=== PATIENT | male | born 2000 | race Two or more races ===

== ENCOUNTER 2022-11-01 10:30 | Emergency (ER) | payer OTHER, MEDICAID ==
[2022-11-01] MEDS ORDERED: Lidocaine 1% 10 ML MDV INJECT ONE (10:54)
[2022-11-01] MEDS ORDERED: Diphtheria,Pertussis(Acell),Tetanus Vaccine 0.5 ML Syringe IM ONE (11:56)
[2022-11-01] MEDS ORDERED: Acetaminophen/HYDROcodone 325-10 MG Tab PO ONE (12:17)
== END 2022-11-01 12:35 | disposition short-term general hospital (02) ==
LOC: VM.ED 10:30
DX: S93.121A Dislocation of metatarsophalangeal joint of right great toe, initial encounter (principal); S91.311A Laceration without foreign body, right foot, initial encounter; Z23 Encounter for immunization; V86.56XA Driver of dirt bike or motor/cross bike injured in nontraffic accident, initial encounter; Y92.410 Unspecified street and highway as the place of occurrence of the external cause
CPT/HCPCS: 12002; 73630-RT; 90471; 90715; 99283-25; A9270-GY; J3490